=== PATIENT | female | born 1945 | race Caucasian/White ===

== ENCOUNTER 2017-08-06 10:40 | Emergency (ER) | payer MEDICARE, OTHER ==
[2017-08-06] MEDS ORDERED: ORPHENADRINE 30 MG/ML 2 ML VIAL IM STA (11:19)
--- NOTE | 2017-08-06 11:24 | ED ---
General Adult HPI - General Chief complaint: Back Pain/Injury Stated complaint: BACK PAIN/INJURY Time Seen by Provider: 08/06/17 11:11 Source: patient, RN notes reviewed Mode of arrival: ambulatory Limitations: no limitations - History of Present Illness Initial comments: 72-year-old female presents to the emergency department with a chief complaint of low back pain. Patient was getting into a jeep last Sunday and she twisted and felt a sharp pain in her back. Patient states then the pain went away until later that night and since she's been just having this low back pain. Patient states certain movements will make it worse. She states that rubbing it seems to help the pain get better. She states there is no actual trauma or injury to the back. She denies any loss of bowel or bladder function with this. She states she's been taking tramadol and baclofen with no improvement to her pain. She states she has a doctor's appointment on but she was concerned because it just continues to be the same back pain. She has a history of back pain in the past states she went to physical therapy that did help with her pain a lot. They were concerned due to the continued discomfort so they thought that she should be seen.Patient denies any recent fever, chills , shortness of breath, chest pain, abdominal pain, nausea vomiting, numbness or tingling, dysuria or hematuria, constipation or diarrhea, headaches or visual changes, or any other current symptoms. - Related Data Home Medications Medication Instructions Recorded Confirmed ALPRAZolam [Xanax] 0.25 mg PO BID PRN 10/24/14 03/15/16 Aspirin 81 mg PO DAILY 10/24/14 03/15/16 Baclofen [Lioresal] 10 mg PO BID PRN 10/24/14 03/15/16 Levothyroxine Sodium [Synthroid] 100 mcg PO DAILY 10/24/14 03/15/16 Losartan [Cozaar] 12.5 mg PO 1200 10/24/14 03/15/16 Mometasone Furoate [Asmanex] 1 puff INHALATION QAM 10/24/14 03/15/16 Pravastatin Sodium [Pravachol] 80 mg PO HS 10/24/14 03/15/16 Spironolactone-Hctz 25-25Mg 1 each PO DAILY 10/24/14 03/15/16 [Aldactazide 25-25Mg] Ubidecarenone [Co Q-10] 100 mg PO DAILY 10/24/14 03/15/16 Vit C/E/Zn/Coppr/Lutein/Zeaxan 1 each PO BID 10/24/14 03/15/16 [Preservision Areds 2 Softgel] traMADol HCl [Ultram] 50 mg PO Q4H PRN 10/24/14 03/15/16 Cholecalciferol [Vitamin D3] 4,000 unit PO DAILY 02/26/15 03/15/16 Fluticasone Nasal [place] [Flonase 2 spray NASAL QAM PRN 02/26/15 03/15/16 Nasal [place]] Ipratropium-Albuterol Nebulize 1 applicate INHALATION QAM PRN 02/26/15 03/15/16 [Duoneb 0.5 mg-3 mg/3 ml Soln] Loratadine [Claritin] 10 mg PO DAILY 02/26/15 03/15/16 Omeprazole [PriLOSEC] 40 mg PO AC-BRKFST 02/26/15 03/15/16 Ranitidine HCl [Zantac] 300 mg PO QAM 02/26/15 03/15/16 Vitamin B Complex 1 applicate PO DAILY 03/01/15 03/15/16 Tiotropium 18 Mcg/Puff [Spiriva] 1 cap INHALATION DAILY 03/15/16 03/15/16 Previous Rx's Medication Instructions Recorded Hydrocodone/Acetaminophen [[place] 1 each PO Q6HR PRN #20 tab 08/06/17 5-325] Allergies Allergy/AdvReac Type Severity Reaction Status Date / Time No Known Allergies Allergy Verified 08/06/17 10:46 Review of Systems ROS Statement: Those systems with pertinent positive or pertinent negative responses have been documented in the HPI. ROS Other: All systems not noted in ROS Statement are negative. Past Medical History Past Medical History: Asthma, COPD, CVA/TIA, Eye Disorder, GERD/Reflux, Hyperlipidemia, Hypertension, Osteoarthritis (OA), Thyroid Disorder Additional Past Medical History / Comment(s): TIA-2009, hx. colon polyps, macular degeneration History of Any Multi-Drug Resistant Organisms: None Reported Past Surgical History: Appendectomy, Hernia Repair, Hysterectomy Additional Past Surgical History / Comment(s): THYROID SURGERY, facial reconstructive surgery Past Anesthesia/Blood Transfusion Reactions: Motion Sickness Past Psychological History: Anxiety Smoking Status: Former smoker Past Alcohol Use History: None Reported Past Drug Use History: None Reported - Past Family History Mother Family Medical History: Cancer General Exam - General Exam Comments Initial Comments: General: The patient is awake and alert, in no distress, and does not appear acutely ill. Eye: Pupils are equal, round and reactive to light. Ears, nose, mouth and throat: There are moist mucous membranes. Neck: The neck is supple, there is no tenderness. Cardiovascular: There is a regular rate and rhythm. No murmur, rub or gallop is appreciated. Respiratory: Lungs are clear to auscultation, respirations are non-labored, breath sounds are equal. No wheezes, stridor, rales, or rhonchi. Back: There is no tenderness to palpation in the midline. There is no obvious deformity. No rashes noted. Negative straight leg raise bilaterally. Musculoskeletal: Normal ROM, no tenderness, There is no pedal edema. There is no calf tenderness or swelling. Sensation intact. Pulses equal bilaterally 2+. Neurological: CN II-XII intact, There are no obvious motor or sensory deficits. Coordination appears grossly intact. Speech is normal. Skin: Skin is warm and dry and no rashes or lesions are noted. Psychiatric: Cooperative, appropriate mood & affect, normal judgment. Limitations: no limitations Course Vital Signs 08/06/17 10:44 Temperature 98.8 F Pulse Rate 81 Respiratory 18 Rate Blood Pressure 151/71 O2 Sat by Pulse 93 L Oximetry Medical Decision Making - Medical Decision Making 72-year-old female presents for back pain. At this time CT is reviewed and results are discussed with the patient in detail. At this time we discussed that she needs follow-up with orthopedics. We discussed also close follow-up with her doctor. We will give her some [place] to help with her discomfort. We discussed return parameters all questions. Patient stated she understood and she is given this plan. All questions have been answered. She will be discharged. - Radiology Data Radiology results: report reviewed, image reviewed Disposition Clinical Impression: Spinal stenosis, Compression fracture of L1 lumbar vertebra, Degenerative disc disease Disposition: HOME SELF-CARE Condition: Stable Instructions: Back Pain (ED), Lower Back Exercises (ED) Additional Instructions: Please use medication as discussed. Please follow up with family doctor if symptoms have not improved over the next two days. Please return to the emergency room if your symptoms increase or worsen or for any other concerns. Prescriptions: Hydrocodone/Acetaminophen [[place] 5-325] 1 each PO Q6HR PRN #20 tab PRN Reason: Pain Referrals: Amy Garcia MD [Primary Care Provider] - 1-2 days Time of Disposition: 12:12
--- NOTE | 2017-08-06 12:05 | CT ---
EXAMINATION TYPE: CT lumbar spine wo con DATE OF EXAM: 08/06/2017 11:48 AM COMPARISON: NONE HISTORY: Back pain, twisting injury CT DLP: 605.3 mGycm Automated exposure control for dose reduction was used. Unenhanced CT of the lumbar spine was performed. Bone and soft tissue window settings are submitted as well as coronal and sagittal reconstructions. L1-L2: There is a superior endplate compression fracture. No retropulsion. Posterior elements intact. Vacuum disc and degenerative disc disease noted. L2-L3: Normal disc space height. No disc herniation protrusion or central stenosis. No facet joint arthropathy. No evidence for foraminal encroachment. L3-L4: Vacuum disc and severe degenerative disc disease noted with diffuse disc bulging. Mild effacem ent of thecal sac. L4-L5: There is diffuse central disc protrusion with facet arthropathy and ligamentum flavum hypertro phy. There is effacement of thecal sac and probable canal stenosis. Foraminal encroachment suspected. Recommend MRI. L5-S1: Vacuum disc and severe degenerative disc disease with facet arthropathy. Central disc bulging noted. Could not exclude canal stenosis or foraminal encroachment. Air within the SI joint suggest arthropathy. IMPRESSION: 1. Mild superior endplate compression fracture L1 of indeterminate age correlate clinically for point tenderness, no retropulsion.. 2. Multilevel degenerative disc disease with disc bulging or protrusions resulting in multilevel susp ected canal stenosis recommend follow-up MRI.
[2017-08-06 12:28] VITALS: BP 147/80; PULSE 76; RESP 16; TEMP 98.6
== END 2017-08-06 12:25 | disposition home or self-care (01) ==
LOC: EC 10:40
DX: S32.019A Unspecified fracture of first lumbar vertebra, initial encounter for closed fracture (principal); M51.36 Other intervertebral disc degeneration, lumbar region; M48.061 Spinal stenosis, lumbar region without neurogenic claudication; K21.9 Gastro-esophageal reflux disease without esophagitis; E78.5 Hyperlipidemia, unspecified; I10 Essential (primary) hypertension; E07.9 Disorder of thyroid, unspecified; J44.9 Chronic obstructive pulmonary disease, unspecified; M19.90 Unspecified osteoarthritis, unspecified site; Z86.73 Personal history of transient ischemic attack (TIA), and cerebral infarction without residual deficits; Z79.51 Long term (current) use of inhaled steroids; Z79.82 Long term (current) use of aspirin; Z79.899 Other long term (current) drug therapy; Z87.891 Personal history of nicotine dependence; X50.1XXA Overexertion from prolonged static or awkward postures, initial encounter
CPT/HCPCS: 99283; 96372; 72131; J2360